=== PATIENT | male | born 1955 | race Asian ===

== ENCOUNTER 2019-12-18 02:20 | Inpatient (IN) | payer MEDICARE ==
[~2019-12-18] VITALS: Ht 172.7 cm; Wt 79.5 kg
[~2019-12-18 02:20] MED LIST: GLIM4TAB42 PO; MECL12.554 PO; METF-916 PO; NEBI10TA2 PO; NITR0.4S29 SL; RANO1000 PO; SITA100T7 PO; TAMS0.4C36 PO; TICA90TA PO; VALS160T51 PO
[2019-12-18 03:18] LABS: Basophils # (auto) 0 10 ^3/uL (0-0.2); Basophils % (auto) 0.4 % (0.0-2.0); Eosinophils # (auto) 0.1 10 ^3/uL (0-0.8); Hematocrit 38.9 % (41.0-53.0); Hemoglobin 12.8 g/dL (13.5-17.5); Lymphocytes # (auto) 1.2 10 ^3/uL (0.4-5.4); Lymphocytes % (auto) 18.5 % (10.0-50.0); Mean Corpuscular Hemoglobin 30.4 pg (28.0-32.0); Mean Corpuscular Volume 91.9 fL (80.0-100.0); Monocytes # (auto) 0.6 10 ^3/uL (0-1.3); Monocytes % (auto) 8.4 % (0.0-12.0); Neutrophils # (auto) 4.8 10 ^3/uL (1.6-8.6); Neutrophils % (auto) 71.7 % (37.0-80.0); Platelet Count (auto) 215 10^3/uL (140-450); Red Blood Cells 4.23 10^6/uL (4.5-5.90); Red Cell Distribution Width 14.6 % (11.8-14.3); White Blood Cell 6.6 10^3/uL (4.4-10.8)
[2019-12-18 03:32] LABS: INR 1.01 (0.9-1.15); Partial Thromboplastin Time 27.6 sec (23.64-32.05)
[2019-12-18 03:38] LABS: Albumin 3.1 g/dL (3.4-5.0); Anion Gap 9 (5-15); BUN/Creatinine Ratio 14.2; Blood Urea Nitrogen 21 mg/dL (7-18); Calcium 7.8 mg/dL (8.5-10.1); Carbon Dioxide 21 mmol/L (21-32); Chloride 109 mmol/L (98-107); GFR African American 61 mL/min; GFR Non-African American 51 mL/min; Glucose 170 mg/dL (74-106); Potassium 3.2 mmol/L (3.5-5.1); Sodium 139 mmol/L (136-145)
[2019-12-18 03:41] LABS: Alanine Aminotransferase 20 U/L (16-61); Alkaline Phosphatase 65 U/L (45-117); Aspartate Aminotransferase 22 U/L (15-37); Bilirubin, Total 0.6 mg/dL (0.2-1.0); Total Protein 6.8 g/dL (6.4-8.2)
[2019-12-18] MEDS ORDERED: ONDANSETRON HCL 4 MG/2 ML VIAL IV ONE (05:45)
[2019-12-18] MEDS ORDERED: MORPHINE SULFATE 4 MG/ML SYR/VIAL IV ONE (05:45)
[2019-12-18] MEDS ORDERED: ASPirin 81 mg TAB PO ONE (06:30)
[2019-12-18] MEDS ORDERED: POTASSIUM CHL 20 Meq TABLET PO ONE (07:15)
[2019-12-18] MEDS ORDERED: hydrALAZINE HCL 20 MG/ML VL IV PRN (07:15)
[2019-12-18] MEDS ORDERED: ENOXAPARIN SOD 100 MG/1 ML SYRINGE SC ONE (07:15)
[2019-12-18] MEDS ORDERED: DEXTROSE (50%) 50ML SYRG IV PRN (07:15)
[2019-12-18] MEDS ORDERED: TEMAZEPAM 15 MG CAP PO PRN (07:15)
[2019-12-18] MEDS ORDERED: ONDANSETRON HCL 4 MG/2 ML VIAL IV PRN (07:15)
[2019-12-18] MEDS: ACETAMINOPHEN 325 MG TAB PO PRN ×2 (08:08→15:49)
[2019-12-18] MEDS ORDERED: VALSARTAN 80 MG TAB PO SCH (10:00)
[2019-12-18] MEDS: RANOLAZINE ER 500 MG TAB PO SCH ×2 (10:23→21:47)
[2019-12-18] MEDS: PANTOPRAZOLE 40 MG/10 ML VIAL INJ IV SCH (10:23)
[2019-12-18] MEDS: cefTRIAXone 1GM/50ML D5W 50 ML IV SCH (10:23)
[2019-12-18] MEDS: TICAGRELOR 90 MG TAB PO SCH ×2 (11:31→21:46)
[2019-12-18] MEDS: InsuLIN REG 1unit/0.01ml Soln (100units/ml) SC SCH ×2 (12:00→17:52)
[2019-12-18] MEDS: ACCU-CHEK COMFORT CURVE STRIP VI SCH ×2 (12:16→17:43)
--- NOTE | 2019-12-18 12:58 | NUR ---
Telemetry admit from ER MARIA ISABEL STINSON admitted to Telemetry unit after SBAR received. Patient oriented to CECILIA PETERSON RN primary RN, unit, room, bed, and unit policies regarding patient care and visiting hours. Patient now on continuous telemetry monitoring, tele box #33 and telemetry reading on arrival to unit is sinus 87. Patient placed on bedside oxygen 2L NC, weighed by bedscale and encouraged to call if they need something. All questions and concerns addressed, patient verbalized understanding. Bed in low and locked position, call light within reach. Will continue to monitor Q1 hour and PRN.
--- NOTE | 2019-12-18 13:20 | NUR ---
Called patient's phone number listed under home phone # No answer. Called [phone].
--- NOTE | 2019-12-18 14:02 | NUR ---
Called person to notify - Glenn Cole stated she is a friend to the patient. Mrs. Elizabeth provided the phone number for the patient's ex-. Phone number is [phone].
[2019-12-18 14:13] VITALS: BP 132/88
[2019-12-18] MEDS ORDERED: CARV25TA PO (14:39)
[2019-12-18] MEDS ORDERED: POTA10TA51 PO (14:39)
[2019-12-18] MEDS ORDERED: FURO40TA4 PO (14:39)
[2019-12-18] MEDS ORDERED: ASPI-498 PO (14:39)
[2019-12-18] MEDS ORDERED: ATO40T PO (14:39)
[2019-12-18] MEDS ORDERED: SACU1TAB PO (14:39)
--- NOTE | 2019-12-18 16:15 | NUR ---
MRSA swab collected and sent to lab
[2019-12-18] MEDS: MORPHINE SULF INJ 2 MG/ML SYRINGE 1ML IV PRN (16:22)
[2019-12-18 17:00] VITALS: BP 146/97
[2019-12-18] MEDS ORDERED: SUCRALFATE 1 GM TAB PO ONE (17:15)
[2019-12-18] MEDS: FUROSEMIDE 20 MG/2 ML VIAL IV SCH (17:43)
--- NOTE | 2019-12-18 18:10 | NUR ---
Patient taken down to radiology
--- NOTE | 2019-12-18 18:31 | NUR ---
Patient back to room Placed back on potline monitor. Will continue to monitor Q1 hour and PRN.
--- NOTE | 2019-12-18 19:00 | NUR ---
Closing Note Report given to addictions counselor assistant RN. No signs or symptoms of distress noted at this time.
[2019-12-18 20:00] VITALS: BP 155/92
--- NOTE | 2019-12-18 20:00 | NUR ---
Opening Shift Note Assumed care of patient, awake, AAOx4. Kazakh speaking. No S/S of distress/SOB or pain. On 2L oxygen via nasal cannula. Bed in lowest locked position, side rails up x2, call light within reach. Patient to be NPO after midnight for renal ultrasound in the morning. Instructed on POC and to call for assist PRN, will continue to monitor for changes Q1hr and PRN.
[2019-12-18] MEDS: SUCRALFATE 1 GM TAB PO SCH (21:46)
[2019-12-18] MEDS: ATORVASTATIN 20 MG TAB PO SCH (21:47)
[2019-12-18] MEDS: SACUBITRIL-VALSARTAN 24mg/26mg TAB PO SCH (21:47)
[2019-12-18] MEDS: CARVEDILOL 12.5 MG TAB PO SCH (21:47)
[2019-12-18 22:00] VITALS: BP 162/100
[2019-12-19] VITALS (8 sets, daily range): BP systolic 114–146; BP diastolic 80–114
--- NOTE | 2019-12-19 | NUR ---
PATIENT NPO FOR RENAL ULTRASOUND TODAY
[2019-12-19] MEDS: InsuLIN REG 1unit/0.01ml Soln (100units/ml) SC SCH ×4 (05:50→18:37)
[2019-12-19] MEDS: FUROSEMIDE 20 MG/2 ML VIAL IV SCH ×2 (05:50→18:17)
[2019-12-19] MEDS: ACCU-CHEK COMFORT CURVE STRIP VI SCH ×4 (05:50→18:17)
[2019-12-19 06:44] LABS: Basophils # (auto) 0 10 ^3/uL (0-0.2); Basophils % (auto) 0.7 % (0.0-2.0); Eosinophils # (auto) 0.1 10 ^3/uL (0-0.8); Eosinophils % (auto) 1.1 % (0.0-7.0); Hematocrit 41.3 % (41.0-53.0); Hemoglobin 13.9 g/dL (13.5-17.5); Lymphocytes # (auto) 1.6 10 ^3/uL (0.4-5.4); Lymphocytes % (auto) 23.1 % (10.0-50.0); Mean Corpuscular Hemoglobin 30.9 pg (28.0-32.0); Mean Corpuscular Hgb Conc. 33.6 g/dL (32.0-36.0); Monocytes # (auto) 0.8 10 ^3/uL (0-1.3); Neutrophils # (auto) 4.5 10 ^3/uL (1.6-8.6); Neutrophils % (auto) 64.1 % (37.0-80.0); Nucleated Red Blood Cells % 0.1 %; Platelet Count (auto) 214 10^3/uL (140-450); Red Blood Cells 4.49 10^6/uL (4.5-5.90); Red Cell Distribution Width 14.4 % (11.8-14.3); White Blood Cell 6.9 10^3/uL (4.4-10.8)
[2019-12-19 06:54] LABS: Calcium 8.6 mg/dL (8.5-10.1); Potassium 3.7 mmol/L (3.5-5.1)
[2019-12-19 06:58] LABS: BUN/Creatinine Ratio 15.1
[2019-12-19] MEDS: SUCRALFATE 1 GM TAB PO SCH ×4 (07:00→22:00)
--- NOTE | 2019-12-19 07:30 | NUR ---
Opening Shift Note Assumed care of patient, awake and alert. No S/S of distress/SOB or pain. Instructed on POC and to call for assist PRN, will continue to monitor for changes Q1hr and PRN. PT IS LITHU[place] SPEAKING ONLY. GEOPHYSICAL DRAFTER USED.
[2019-12-19] MEDS: CARVEDILOL 12.5 MG TAB PO SCH ×2 (08:00→18:18)
[2019-12-19] MEDS: ASPirin 81 mg TAB PO SCH (09:24)
[2019-12-19] MEDS: RANOLAZINE ER 500 MG TAB PO SCH ×2 (09:24→22:00)
[2019-12-19] MEDS: cefTRIAXone 1GM/50ML D5W 50 ML IV SCH (09:24)
[2019-12-19] MEDS: TICAGRELOR 90 MG TAB PO SCH ×2 (09:25→22:00)
[2019-12-19] MEDS: SACUBITRIL-VALSARTAN 24mg/26mg TAB PO SCH ×2 (09:25→22:00)
[2019-12-19] MEDS: PANTOPRAZOLE 40 MG/10 ML VIAL INJ IV SCH (09:25)
[2019-12-19] MEDS: MORPHINE SULF INJ 2 MG/ML SYRINGE 1ML IV PRN (10:41)
[2019-12-19] MEDS ORDERED: levoFLOXacin 750MG 150 ML IV ONE (12:45)
--- NOTE | 2019-12-19 16:37 | NUR ---
Rounds Patient awake and alert. No S/S of distress/SOB or pain. Will continue to monitor changes q1hr and PRN.
[2019-12-19] MEDS ORDERED: predniSONE 20 MG TAB PO ONE (19:45)
[2019-12-19] MEDS: BUDESONIDE (INHALATION) 0.5 MG/2 ML NEB NEB SCH (21:16)
[2019-12-19] MEDS: ATORVASTATIN 20 MG TAB PO SCH (22:00)
[2019-12-20 05:27] VITALS: BP 136/92
[2019-12-20] MEDS: SUCRALFATE 1 GM TAB PO SCH ×4 (05:48→21:29)
[2019-12-20] MEDS: FUROSEMIDE 20 MG/2 ML VIAL IV SCH ×2 (05:48→17:57)
[2019-12-20] MEDS: ACCU-CHEK COMFORT CURVE STRIP VI SCH ×4 (05:48→17:58)
[2019-12-20] MEDS: InsuLIN REG 1unit/0.01ml Soln (100units/ml) SC SCH ×4 (05:49→18:00)
[2019-12-20 07:13] LABS: Potassium 3.3 mmol/L (3.5-5.1)
[2019-12-20 07:17] LABS: BUN/Creatinine Ratio 17.4; Calcium 8.7 mg/dL (8.5-10.1)
--- NOTE | 2019-12-20 08:00 | NUR ---
Opening Shift Note Assumed care of patient, awake, alert and oriented X4. No S/S of distress/SOB or pain. Patient is primarily Armenian speaking but does understand some Lao. Tele# 33, sinus tachycardia @ 104 bpm with PVC's and couplets. IV to right forearm, 20 gauge patent and saline locked. Instructed on POC and to call for assist PRN, verbalized understanding. Bed locked, in lowest position, call light within reach, will continue to monitor for changes Q1hr and PRN.
--- NOTE | 2019-12-20 08:06 | NUR ---
ARRHYTHMIA Patient ran a run of PVC's, couplets and Thang Retana, desk monitor. Upon assessment, patient verbalized he could "feel" it Verbalized he felt a slight "pain" in his chest but has since subsided. Dr Adi trinidad, awaiting return call. Will continue to monitor.
[2019-12-20 09:02] VITALS: BP 129/97
[2019-12-20] MEDS: BUDESONIDE (INHALATION) 0.5 MG/2 ML NEB NEB SCH ×2 (10:15→20:21)
[2019-12-20] MEDS: PANTOPRAZOLE 40 MG/10 ML VIAL INJ IV SCH (10:22)
[2019-12-20] MEDS: CARVEDILOL 12.5 MG TAB PO SCH ×2 (10:22→17:58)
[2019-12-20] MEDS: ASPirin 81 mg TAB PO SCH (10:22)
[2019-12-20] MEDS: levoFLOXacin 750MG 150 ML IV SCH (10:22)
[2019-12-20] MEDS: TICAGRELOR 90 MG TAB PO SCH ×2 (10:23→21:29)
[2019-12-20] MEDS: SACUBITRIL-VALSARTAN 24mg/26mg TAB PO SCH ×2 (11:43→21:29)
[2019-12-20] MEDS: predniSONE 20 MG TAB PO SCH (11:43)
[2019-12-20] MEDS: RANOLAZINE ER 500 MG TAB PO SCH ×2 (11:43→21:29)
[2019-12-20 13:00] VITALS: BP 132/85
--- NOTE | 2019-12-20 14:15 | NUR ---
FAMILY Chloe at bedside, updated on plan of care and informed per Dr Matthew would like her to be at bedside tomorrow morning @ 1030 to discuss the plan of care. Per , she will not be available to be at bedside at that time due to work. Informed she would like to be contacted by phone, see next of kin.
--- NOTE | 2019-12-20 14:22 | NUR ---
ARRHYTHMIA Notified Gen Bran of arrhythmias this morning, verbalized understanding.
[2019-12-20] MEDS ORDERED: POTASSIUM CHL 20 Meq TABLET PO ONE (14:30)
[2019-12-20 17:12] VITALS: BP 121/77
--- NOTE | 2019-12-20 18:30 | NUR ---
PULMONOLOGY Dr Camejo at bedside for rounds, new order received and followed through. Patient updated on plan of care by via telephone.
--- NOTE | 2019-12-20 19:21 | NUR ---
Care endorsed to RADHA Condon, night nurse.
--- NOTE | 2019-12-20 19:23 | NUR ---
Opening Shift Note Assumed care of patient, awake and alert. No S/S of distress/SOB or pain. Instructed on POC and to call for assist PRN, will continue to monitor for changes Q1hr and PRN. Side rails up x2. Bed locked in lowest position. Call light within reach.
[2019-12-20] MEDS: ATORVASTATIN 20 MG TAB PO SCH (21:29)
[2019-12-20 22:00] VITALS: BP 105/73
[2019-12-21] MEDS: ACCU-CHEK COMFORT CURVE STRIP VI SCH ×3 (00:28→12:29)
[2019-12-21] MEDS: InsuLIN REG 1unit/0.01ml Soln (100units/ml) SC SCH ×3 (00:29→12:00)
[2019-12-21] MEDS: FUROSEMIDE 20 MG/2 ML VIAL IV SCH (05:58)
[2019-12-21] MEDS: SUCRALFATE 1 GM TAB PO SCH ×2 (05:58→12:29)
[2019-12-21 05:59] VITALS: BP 113/50
--- NOTE | 2019-12-21 07:00 | NUR ---
Opening Shift Note Received report on the patient. Awake lying in bed. Patient shows no signs of distress at this time. Discussed the plan of care with the patient. Bed in lowest position, side rails up x2, and the call light is within reach. Will continue to monitor.
[2019-12-21 07:45] VITALS: BP 113/68
[2019-12-21 09:00] VITALS: BP 141/81
[2019-12-21] MEDS: TICAGRELOR 90 MG TAB PO SCH (09:45)
[2019-12-21] MEDS: levoFLOXacin 750MG 150 ML IV SCH (09:45)
[2019-12-21] MEDS: PANTOPRAZOLE 40 MG/10 ML VIAL INJ IV SCH (09:45)
[2019-12-21] MEDS: RANOLAZINE ER 500 MG TAB PO SCH (09:46)
[2019-12-21] MEDS: ASPirin 81 mg TAB PO SCH (09:46)
[2019-12-21] MEDS: predniSONE 20 MG TAB PO SCH (09:46)
[2019-12-21] MEDS: SACUBITRIL-VALSARTAN 24mg/26mg TAB PO SCH (09:46)
[2019-12-21] MEDS: CARVEDILOL 12.5 MG TAB PO SCH (09:47)
[2019-12-21] MEDS ORDERED: levoFLOXacin 500 MG TAB PO SCH (10:00)
[2019-12-21] MEDS: BUDESONIDE (INHALATION) 0.5 MG/2 ML NEB NEB SCH (10:43)
[2019-12-21 11:22] LABS: BUN/Creatinine Ratio 19.2; Calcium 8.4 mg/dL (8.5-10.1); Potassium 3.5 mmol/L (3.5-5.1)
[2019-12-21 13:00] VITALS: BP 130/70
[2019-12-21 13:10] VITALS: BP 130/70
--- NOTE | 2019-12-21 14:26 | NUR ---
Tele Box Tele box returned to the monitor techs. Marlena notified.
== END 2019-12-21 14:26 | disposition home or self-care (01) | DRG 177 ==
LOC: EDBD 02:20 → ER 02:25 → TELE 02:26 → TELE-CENTR 02:27
PROVIDERS: ADMIT Nurse Practitioner; ATTEND Internal Medicine Nephrology
DX: J15.6 Pneumonia due to other Gram-negative bacteria (principal); I50.43 Acute on chronic combined systolic (congestive) and diastolic (congestive) heart failure; N17.0 Acute kidney failure with tubular necrosis; J21.9 Acute bronchiolitis, unspecified; I13.0 Hypertensive heart and chronic kidney disease with heart failure and stage 1 through stage 4 chronic kidney disease, or unspecified chronic kidney disease; R07.2 Precordial pain; I50.82 Biventricular heart failure; E87.6 Hypokalemia; I25.10 Atherosclerotic heart disease of native coronary artery without angina pectoris; E11.22 Type 2 diabetes mellitus with diabetic chronic kidney disease; R80.9 Proteinuria, unspecified; I48.91 Unspecified atrial fibrillation; D64.9 Anemia, unspecified; E78.5 Hyperlipidemia, unspecified; N18.3 Chronic kidney disease, stage 3 (moderate); E66.9 Obesity, unspecified; Z95.1 Presence of aortocoronary bypass graft; Z79.899 Other long term (current) drug therapy; Z95.5 Presence of coronary angioplasty implant and graft; Z87.891 Personal history of nicotine dependence
CPT/HCPCS: 36415; 71045; 71250; 74176; 80048; 80053; 82962; 83735; 83880; 84484; 85025; 85610; 85730; 87040; 87081; 93005; 93975; 94640; 96365; 96372; 96375; C9113; G0378; J0696; J1815; J1956; J2405